=== PATIENT | male | born 1995 | race Caucasian/White ===

== ENCOUNTER 2016-08-13 06:08 | Emergency (ER) | payer OTHER ==
[~2016-08-13] VITALS: Ht 185.4 cm; Wt 77.1 kg
[2016-08-13 06:17] VITALS: BP 109/69
[2016-08-13] MEDS ORDERED: MEDR4PAK PO (07:12)
== END 2016-08-13 07:21 | disposition home or self-care (01) ==
LOC: M ED 07:08
DX: M54.42 Lumbago with sciatica, left side (principal)

== ENCOUNTER 2016-09-27 18:00 | Emergency (ER) | payer OTHER ==
[~2016-09-27] VITALS: Ht 182.9 cm; Wt 77.4 kg
[~2016-09-27 18:00] MED LIST: MEDR4PAK PO
[2016-09-27] MEDS ORDERED: KETOROLAC 30 MG/ML VIAL (J1885) IV ONE (18:45)
[2016-09-27] MEDS ORDERED: NS 1,000 ML IV ONE (18:45)
[2016-09-27 19:15] LABS: BASO # 0.1 K/mm3 (0.0-0.2); BASO % 1.2 % (0.0-1.0); EOS # 0.1 K/mm3 (0.0-0.50); EOS % 1.2 % (0.0-3.0); LARGE UNSTAINED CELL # 0.2 K/mm3 (0.0-0.4); LARGE UNSTAINED CELL % 2.3 % (0.0-4.0); LYMPH # 1.3 K/mm3 (1.5-6.5); LYMPH % 14.1 % (24.0-44.0); MEAN CORPUSCULAR HEMOGLOBIN 28.5 pg (27.0-33.0); MEAN CORPUSCULAR HGB CONC 35.5 g/dl (32.0-36.5); MEAN CORPUSCULAR VOLUME 80.4 fl (80.0-96.0); MONO # 0.5 K/mm3 (0.0-0.8); MONO % 5.5 % (0.0-5.0); NEUTROPHILS # 7.1 K/mm3 (1.8-7.7); NEUTROPHILS % 75.7 % (36.0-66.0); PLATELET COUNT, AUTOMATED 226 k/mm3 (150-450); RED CELL DISTRIBUTION WIDTH 12.3 % (11.5-14.5); WHITE BLOOD COUNT 9.4 K/mm3 (4.0-10.0)
[2016-09-27 19:45] LABS: ALBUMIN 3.9 GM/DL (3.2-5.2); ALBUMIN/GLOBULIN RATIO 1.05 (1.00-1.93); ALKALINE PHOSPHATASE 120 U/L (45-117); ALT/SGPT 8 U/L (12-78); ANION GAP 7 MEQ/L (8-16); AST/SGOT 13 U/L (15-37); BILIRUBIN,TOTAL 1.1 MG/DL (0.2-1.0); BLOOD UREA NITROGEN 8 MG/DL (7-18); CALCIUM LEVEL 8.5 MG/DL (8.5-10.1); CARBON DIOXIDE LEVEL 29 MEQ/L (21-32); CHLORIDE LEVEL 101 MEQ/L (98-107); CREATININE FOR GFR 0.91 MG/DL (0.70-1.30); GLUCOSE, FASTING 82 MG/DL (70-105); POTASSIUM SERUM 3.6 MEQ/L (3.5-5.1); SODIUM LEVEL 137 MEQ/L (136-145); TOTAL PROTEIN 7.6 GM/DL (6.4-8.2)
[2016-09-27 19:49] LABS: CONTROL LINE MONO INT CTR LINE PRESENT
[2016-09-27] MEDS ORDERED: dexameTHASONE 20 MG/5 ML VIAL (J1100) IV ONE (20:00)
[2016-09-27 20:31] VITALS: BP 100/57
== END 2016-09-27 20:56 | disposition home or self-care (01) ==
LOC: M ED 18:00
DX: J02.9 Acute pharyngitis, unspecified (principal)
CPT/HCPCS: 80053; 85025; 86308; 86663; 86664; 86665; 87880; 96374; 96375; 99283; J1100; J1885

== ENCOUNTER 2018-10-30 15:57 | Emergency (ER) | payer OTHER ==
[~2018-10-30] VITALS: Ht 182.9 cm; Wt 80.5 kg
[2018-10-30] MEDS ORDERED: NAPROXEN 250 MG TAB PO ONE (17:30)
[2018-10-30] MEDS ORDERED: NAPR-837 PO (18:08)
[2018-10-30 18:23] VITALS: BP 119/56
--- NOTE | 2018-10-31 09:16 | REP ---
RIGHT CLAVICLE: 10/30/2018. Clinical history: Tender at the sternal margin of the clavicle. Findings: Two-view show the AC joint intact shaft and medial head of the clavicle were grossly unremarkable. No visible fracture or focal lesion. The adjacent ribs, scapula and humerus unremarkable. Impression: 1. Negative for fracture or other acute finding about the right clavicle. Electronically Signed by Olayinka Salvador MD 10/31/2018 08:05 P
== END 2018-10-30 18:24 | disposition home or self-care (01) ==
LOC: M ED 15:57
DX: M25.511 Pain in right shoulder (principal)